=== PATIENT | female | born 2000 | race Caucasian/White ===

== ENCOUNTER 2024-01-10 09:01 | Emergency (ER) | payer OTHER, SELFPAY ==
[2024-01-10 09:04] VITALS: BP 131/72; PULSE 91; TEMP 37.3; O2SAT 98; BMI 29.5
--- NOTE | 2024-01-10 09:27 | XR_ITS ---
The [address] [address] Patient Name: STEFANO UMANA MRN: [id number] date: 2000 Sex: F Assigned Patient Location: ER Current Patient Location: ER Accession/Order Number: [id number] Exam Date: 01/10/2024 10:10 Report Date: 01/10/2024 10:27 At the request of: MATTHEW SCHULZ Procedure: XR chest 2V EXAMINATION: XR chest 2V HISTORY: cough COMPARISON: No relevant comparison available. TECHNIQUE: pa/lat FINDINGS: LUNGS: Moderate right middle lobe infiltrate. The left lung is clear VASCULATURE: No increased pulmonary vasculature. PLEURA: No pneumothorax, effusion, or pleural thickening. CARDIAC: No cardiomegaly or cardiac silhouette abnormality. MEDIASTINUM: No visible mass or adenopathy. BONES: No fracture or visible bone lesion. OTHER: Negative. XR/XR chest 2V IMPRESSION: Right middle lobe pneumonia Electronically authenticated by: CHANELL ZAMORANO Date: 01/10/2024 10:27
--- NOTE | 2024-01-10 09:28 | ED.GENADUL1 ---
HPI HPI - General Adult General Chief complaint: Abdominal Pain Stated complaint: DIZZINESS/NAUSEA/ VOMITTING Time Seen by Provider: 01/10/24 09:17 Source: patient Mode of arrival: walk-in Limitations: no limitations History of Present Illness HPI narrative: Patient is a 23-year-old female who is presenting to the ER today with chief complaint of cough and congestion for the past 10 days. Multiple people at work have been sick as well with cough and congestion. Patient has no sinus pressure. No headache. Patient had midepigastric discomfort. Patient has had a lot of vomiting with clear and bubbly sputum, intermittently yellow. She does suffer gallbladder and appendix. She is currently on her menses. 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 No recent traveling. Patient states she has had intermittent nausea in the past 10 days as well. Patient has not taken any cough and cold or congestion medication in the past 10 days, she has been using some nausea medication in the last week. Patient looks well, patient is supposed to be at work today. Patient has no diarrhea, no black stools. No other acute complaints. She is not taking any acid reflux medication either All systems are negative except as noted/marked. All systems reviewed and otherwise negative. Nurses note and vital signs reviewed and patient is not hypoxic. General: The patient appears well and in no apparent distress. Patient is resting comfortably on cart. Patient is not toxic, lethargic, or listless Skin: Warm, dry, no pallor noted. There is no rash noted. No petechiae, purpura. Multiple piercings, Head: Normocephalic, atraumatic Eye: Normal conjunctiva, no drainage, EOMI. PERRL Ears, Nose, Mouth, and Throat: oral mucosa is moist. Nares patent. Mouth without vesicles. Cardiovascular: Regular Rate and Rhythm, no murmur, gallop, rub Respiratory: Patient is in no distress, no accessory muscle use, lungs are clear to auscultation, no wheezing, rales or rhonchi Back: non-tender, no CVA tenderness bilaterally to percussion. No CT LS midline pain GI: Mild midepigastric tenderness to palpation, abdomen is soft, no tenderness to palpation, no masses appreciated. No rebound, guarding, or rigidity noted. No distention Musculoskeletal: Patient has full range of motion of all of the extremities, no motor, sensory, or focal neurological deficits Neurological: A&O x4, normal speech Psychiatric: Cooperative Related Data Previous Rx's ?Medication ?Instructions ?Recorded nmrjoslyxnnpfwf-coveqwubtlpmant-XR 10 ml PO Q6H PRN cold symptoms 01/10/24 2 mg-30 mg-10 mg/5 mL oral syrup #200 mL (Bromfed DM) levofloxacin 750 mg tablet 750 mg PO DAILY 7 days #7 tabs 01/10/24 ondansetron 4 mg disintegrating 4 mg PO Q4H PRN nausea and 01/10/24 tablet vomiting 3 days #6 tabs Allergies Allergy/AdvReac Type Severity Reaction Status Date / Time No Known Drug Allergies Allergy Verified 01/10/24 09:07 Opioid HPI Opioid Management Most Recent Opioid Data: No Data to Display Exam Constitutional Vital Signs, click to edit/add: Last Vital Signs Temp 99.2 F 01/10/24 09:04 Pulse 91 H 01/10/24 09:04 Resp 18 01/10/24 09:04 BP 131/72 01/10/24 09:04 Pulse Ox 98 01/10/24 09:04 O2 Del Method Room Air 01/10/24 09:04 Course Vital Signs Vital signs: Vital Signs Temperature 99.2 F 01/10/24 09:04 Pulse Rate 91 H 01/10/24 09:04 Respiratory Rate 18 01/10/24 09:04 Blood Pressure 131/72 01/10/24 09:04 Pulse Oximetry 98 01/10/24 09:04 Oxygen Delivery Method Room Air 01/10/24 09:04 Temperature 99.2 F 01/10/24 09:04 Pulse Rate 91 H 01/10/24 09:04 Respiratory Rate 18 01/10/24 09:04 Blood Pressure 131/72 01/10/24 09:04 Pulse Oximetry 98 01/10/24 09:04 Oxygen Delivery Method Room Air 01/10/24 09:04 Medical Decision Making MDM Narrative Medical decision making narrative: Patient was given 1 L of IV fluids, Zofran, Pepcid, chest x-ray and lab work. Work note given. Patient chest x-ray shows right lower lobe infiltrate. Lipase slightly elevated. Patient feels better after 1 L of IV fluid along with Zofran and Pepcid given. Patient was educated on multiple llvm-mup-gzaibcp products that can be used to help treat her sinus symptoms. Since patient has symptoms for 10 days along with sinus congestion and chest x-ray evidence of right lower lobe infiltrate, patient will be placed on Levaquin. Patient was also given a prescription for Bromfed. Patient will follow-up with PCP, work note given. No questions at discharge. Lab Data Labs: Lab Results 01/10/24 Range/Units 09:15 WBC 6.5 (4.0-11.0) 10^3/uL RBC 4.32 (4.20-5.40) 10^6/uL Hgb 13.0 (12.0-16.0) g/dL Hct 38.8 (36.0-48.0) % MCV 89.8 (81.0-99.0) fL MCH 30.1 (26.7-34.0) pg MCHC 33.5 (29.9-35.2) g/dL RDW 12.5 (11.0-15.0) % Plt Count 216 (150-450) 10^3/uL MPV 11.2 (9.5-13.5) fL Neut % (Auto) 71.7 (43.0-75.0) % Lymph % (Auto) 16.6 L (20.5-60.0) % [place] % (Auto) 10.3 (1.7-12.0) % Eos % (Auto) 0.3 L (0.9-7.0) % Baso % (Auto) 0.6 (0.2-2.0) % Neut # (Auto) 4.7 (1.4-6.5) 10^3/uL Lymph # (Auto) 1.1 L (1.2-3.8) 10^3/uL [place] # (Auto) 0.7 (0.3-0.8) 10^3/uL Eos # (Auto) 0.0 (0.0-0.7) 10^3/uL Baso # (Auto) 0.0 (0.0-0.1) 10^3/uL Abs Immat Gran (auto) 0.03 (0.00-0.03) 10^3/uL Imm/Tot Granulo (auto) 0.5 (0.0-0.5) % Sodium 140 (136-145) mmol/L Potassium 3.7 (3.5-5.1) mmol/L Chloride 103 (98-107) mmol/L Carbon Dioxide 26.3 (21.0-32.0) mmol/L Anion Gap 14.4 BUN 6.0 L (7.0-18.0) mg/dL Creatinine 0.76 (0.55-1.02) mg/dL Est GFR ( Amer) >60 (>=60) Est GFR (Non-Af Amer) >60 (>=60) BUN/Creatinine Ratio 7.9 Glucose 106 (74-106) mg/dL Calcium 8.5 (8.5-10.1) mg/dL Total Bilirubin 0.6 (0.2-1.0) mg/dL AST 22 (15-37) U/L ALT 22 (14-59) U/L Alkaline Phosphatase 61 (46-116) U/L Total Protein 6.9 (6.4-8.2) g/dL Albumin 3.0 L (3.4-5.0) g/dL Globulin 3.9 g/dL Albumin/Globulin Ratio 0.8 Lipase 122.0 H (16.0-77.0) U/L Discharge Plan Discharge Stand Alone Forms: Work/School Release, Portal Instructions Chief Complaint: Abdominal Pain Clinical Impression: Sinusitis, Nausea & vomiting, Mild dehydration, Midepigastric pain, Pneumonia Patient Disposition: Home, Self-Care Condition: Fair Prescriptions / Home Meds: New hxcgeqeduwakuhy-iykcwcgpd-ZA [Bromfed DM] 2-30-10 mg/5 mL syrup 10 ml PO Q6H PRN (Reason: cold symptoms) Qty: 200 0RF ondansetron 4 mg tablet,disintegrating 4 mg PO Q4H PRN (Reason: nausea and vomiting) 3 Days Qty: 6 0RF levofloxacin 750 mg tablet 750 mg PO DAILY 7 Days Qty: 7 0RF Print Language: Surinamese Instructions: Gastritis (ED), Dehydration (ED), Acute Nausea and Vomiting (ED), Abdominal Pain (ED), Pneumonia (ED) Additional Instructions: Increase fluids at home, Gatorade, Powerade, or water. Alternate using DayQuil, NyQuil, and Flonase. Add Mucinex as well as needed. Alternate Tylenol and Motrin every 4 hours to help with fever control, body aches or joint pain. Use oxqw-eqx-yhdmbst vitamin C, vitamin D3, and zinc to help fight infection and help with her immune system. Finish antibiotic for sinusitis and right lower lobe pneumonia, work note given. Use all bmdl-pod-smiwxqt medications along with prescribed medications daily for the next week to help treat symptoms and improve Referrals: PRIMO PARKS [Primary Care Provider] - 1 week
[2024-01-10] MEDS: ONDANSETRON PF 4 MG/2 ML VIAL IV (09:44)
[2024-01-10] MEDS: FAMOTIDINE/PF 20 MG/2 ML VIAL IV (09:44)
[2024-01-10] MEDS: 0.9 % SODIUM CHLORIDE 1,000 ML 999 ML IV (09:44)
[2024-01-10 09:47] LABS: Basophils Percent Auto 0.6 % (0.2-2.0); Eosinophils Percent Auto 0.3 % (0.9-7.0); Hematocrit 38.8 % (36.0-48.0); Immature Granulocytes Abs Auto 0.03 10^3/uL (0.00-0.03); Immature Granulocytes Pct Auto 0.5 % (0.0-0.5); Lymphocytes Absolute Auto 1.1 10^3/uL (1.2-3.8); Lymphocytes Percent Auto 16.6 % (20.5-60.0); Mean Corpuscular HGB Conc 33.5 g/dL (29.9-35.2); Mean Corpuscular Hemoglobin 30.1 pg (26.7-34.0); Mean Corpuscular Volume 89.8 fL (81.0-99.0); Mean Platelet Volume 11.2 fL (9.5-13.5); Monocytes Absolute Auto 0.7 10^3/uL (0.3-0.8); Monocytes Percent Auto 10.3 % (1.7-12.0); Neutrophils Absolute Auto 4.7 10^3/uL (1.4-6.5); Neutrophils Percent Auto 71.7 % (43.0-75.0); Platelet Count 216 10^3/uL (150-450); Red Blood Count 4.32 10^6/uL (4.20-5.40); Red Cell Distribution Width 12.5 % (11.0-15.0); White Blood Count 6.5 10^3/uL (4.0-11.0)
[2024-01-10 10:14] LABS: Alanine Aminotransferase 22 U/L (14-59); Albumin Globulin Ratio 0.8; Alkaline Phosphatase 61 U/L (46-116); Anion Gap 14.4; Aspartate Amino Transferase 22 U/L (15-37); BUN Creatinine Ratio 7.9; Bilirubin Total 0.6 mg/dL (0.2-1.0); Calcium 8.5 mg/dL (8.5-10.1); Carbon Dioxide 26.3 mmol/L (21.0-32.0); Chloride 103 mmol/L (98-107); Estimated GFR (African America >60 (>=60); Estimated GFR (Non-African Ame >60 (>=60); Globulin 3.9 g/dL; Glucose 106 mg/dL (74-106); Potassium 3.7 mmol/L (3.5-5.1); Sodium 140 mmol/L (136-145); Total Protein 6.9 g/dL (6.4-8.2)
[2024-01-10 10:50] VITALS: BP 116/80; PULSE 90; O2SAT 98
== END 2024-01-10 10:50 | disposition home or self-care (01) ==
PROVIDERS: Emergency Provider Emergency Medicine; PCP Nurse Practitioner Family
DX: J18.9 Pneumonia, unspecified organism (principal); R10.13 Epigastric pain; E86.0 Dehydration; R11.2 Nausea with vomiting, unspecified; J32.9 Chronic sinusitis, unspecified
CPT/HCPCS: 36415; 71046; 80053; 83605; 83690; 85025; 96361; 96374; 96375; 99284; J2405